=== PATIENT | male | born 1960 ===

== ENCOUNTER 2019-10-23 10:06 | Day surgery (SDC) | payer BC ==
[~2019-10-23] VITALS: Ht 185.4 cm; Wt 100.4 kg
[2019-10-23] VITALS (15 sets, daily range): BP systolic 98–130; BP diastolic 58–89
[2019-10-23] MEDS ORDERED: diphenhydrAMINE 25mg capsule PO PRN (10:50)
[2019-10-23] MEDS ORDERED: nitroGLYCERIN 0.4mg SUBLingual tab SL PRN (10:50)
[2019-10-23] MEDS ORDERED: normal saline 1,000 ML IV SCH (10:50)
[2019-10-23] MEDS ORDERED: LORazepam 0.5 MG tablet PO PRN (10:50)
[2019-10-23] MEDS ORDERED: LISI10TA4 PO (11:10)
[2019-10-23] MEDS ORDERED: TEMA15CA5 PO (11:10)
[2019-10-23] MEDS ORDERED: LEVO112T5 PO (11:10)
[2019-10-23] MEDS ORDERED: MULT-227 PO (11:10)
[2019-10-23] MEDS ORDERED: CAFF200T69 PO (11:10)
[2019-10-23] MEDS ORDERED: ASPI81TA52 PO (11:10)
[2019-10-23] MEDS ORDERED: ALB0.5UD IH (11:10)
[2019-10-23] MEDS ORDERED: FLO0.4C PO (11:10)
[2019-10-23] MEDS ORDERED: iohexol 350MG/ML 100ml bottle IV ONE (11:59)
[2019-10-23] MEDS ORDERED: midazolam 2 mg/2 ml injection ONE ×2 (11:59→12:47)
[2019-10-23] MEDS ORDERED: fentaNYL/PF 50MCG/1 ML 2ML syringe ONE (11:59)
[2019-10-23] MEDS ORDERED: iohexol 350 MG/ML 50ML vial IV ONE (11:59)
[2019-10-23] MEDS ORDERED: LIDOcaine 1% (10mg/ml)w/preservative injection 20ml MDV ONE (11:59)
[2019-10-23] MEDS ORDERED: proCHLORperazine 10 MG/2 ml inj ONE (12:48)
[2019-10-23] MEDS ORDERED: normal saline 1000ml 1,000 ML IV SCH (13:20)
[2019-10-23] MEDS ORDERED: proCHLORperazine 10 MG/2 ml inj IV PRN (13:20)
[2019-10-23] MEDS ORDERED: ondansetron/PF 4mg/2ml inj IV PRN (13:20)
[2019-10-23] MEDS ORDERED: HYDROcodone/acetaminophen 10/325mg tab PO PRN (13:20)
[2019-10-23] MEDS ORDERED: HYDROcodone/acetaminophen 5mg/325mg tablet PO PRN (13:20)
[2019-10-23] MEDS ORDERED: OXAZEpam 15mg capsule PO PRN (13:20)
--- NOTE | 2019-10-23 15:02 | NUR ---
Patient in room 1331A . I have received report from Beckie.
--- NOTE | 2019-10-23 15:07 | NUR ---
Patient in room 1331A. I have received report from Beckie.
--- NOTE | 2019-10-23 15:32 | NUR ---
Patient report given to Beckie. Patient resting comfortably in bed.
--- NOTE | 2019-10-23 15:33 | NUR ---
Patient report given to Beckie. Pt is resting comfortable in bed.
== END 2019-10-23 19:30 | disposition home or self-care (01) ==
LOC: SSTAY O 10:06
PROVIDERS: ATTEND Internal Medicine Cardiovascular Disease
DX: R94.39 Abnormal result of other cardiovascular function study (principal); I25.10 Atherosclerotic heart disease of native coronary artery without angina pectoris; J44.9 Chronic obstructive pulmonary disease, unspecified; N40.0 Benign prostatic hyperplasia without lower urinary tract symptoms; I10 Essential (primary) hypertension; E03.9 Hypothyroidism, unspecified; G47.00 Insomnia, unspecified; F41.1 Generalized anxiety disorder; I48.0 Paroxysmal atrial fibrillation; Z79.899 Other long term (current) drug therapy; Z87.891 Personal history of nicotine dependence
CPT/HCPCS: 93458; 99152; 99153; C1769; J0780; J1644; J2001; J2250; J3010; Q0163; Q9967; A4620; A6258; C1760